=== PATIENT | male | born 1960 | race Caucasian/White ===

== ENCOUNTER → 2017-10-18 | Emergency (ER) | payer OTHER ==
[~2017-10-18] VITALS: Ht 172.7 cm; Wt 86.2 kg
[~2017-10-18] MED LIST: CIPRO500 MG PO; DHA100 MG PO; LIPITOR20 MG PO; METOPROLOL SUCC25 MG PO; URIN D.S. TABLE1 TAB PO
== END | disposition home or self-care (01) ==
LOC: ER 13:54
DX: N41.0 Acute prostatitis (principal)